=== PATIENT | female | born 1955 | race Caucasian/White ===

== ENCOUNTER → 2017-02-05 | Outpatient (CLI) | payer OTHER ==
[~2017-02-05] MED LIST: ALLO300T2 PO; BENZ-16 PO; CEFD300C3 PO; CYCL-208 PO; HYDR25TA PO; HYOS0.122 PO; INSU100V13 SQ; INSU3INS3 SQ; LANS30CA58 PO; LEVO50TA72 PO; LIRA0.6P SQ; METO-68 PO; OXYC15TA50 PO; PHEN118S9 PO; PRED20TA PO; TOLT4CAP PO; VALS160T13 PO; VENL37.59 PO
--- NOTE | 2017-02-05 12:08 | DI ---
EXAM: FOOT RIGHT 3 VIEWS DATE: 02/05/2017 12:00 AM ENCOUNTER: Initial INDICATION: ITS.REASON: M79.671 PAIN IN RIGHT FOOT COMPARISON: 10/17/2011 TECHNIQUE: 3 views of the foot were obtained. FINDINGS: Bony mineralization is normal. The osseous structures appear intact with no acute fracture identified. Degenerative arthrosis of the interphalangeal joints and first MTP joint. The Lisfranc joint is congruent. No focal radiographically apparent soft tissue swelling seen. Plantar calcaneal spur. Unchanged small metallic radiopaque foreign body within the great toe. IMPRESSION: Degenerative arthrosis and metallic foreign body within the great toe, not significantly changed from 2011, with no acute osseous abnormality identified. .
== END ==
LOC: IMA 11:03
PROVIDERS: ATTEND Family Medicine
DX: M19.071 Primary osteoarthritis, right ankle and foot (principal); M79.5 Residual foreign body in soft tissue